=== PATIENT | male | born 1980 ===

== ENCOUNTER 2021-01-30 16:10 | Emergency (ER) | payer MEDICAID ==
[~2021-01-30] VITALS: Ht 165.1 cm; Wt 99.8 kg
[2021-01-30 16:32] VITALS: BP 144/95
== END 2021-01-30 19:15 | disposition left against medical advice (07) ==
LOC: ER 16:10
DX: K08.89 Other specified disorders of teeth and supporting structures (principal); Z53.21 Procedure and treatment not carried out due to patient leaving prior to being seen by health care provider